=== PATIENT | female | born 1995 | race Caucasian/White ===

== ENCOUNTER 2024-12-23 16:46 | Emergency (ER) | payer BC ==
[2024-12-23] MEDS ORDERED: diphenhydrAMINE 50 MG/ML VIAL ONE (18:13)
[2024-12-23] MEDS ORDERED: Metoclopramide HCl 10 MG (2 mL) VIAL ONE (18:13)
[2024-12-23 18:28] LABS: #Basophils 0.03 10x3/uL (0.0-0.2); #Eosinophils Less than 0.03 10x3/uL (0.0-0.5); #Monocytes 0.53 10x3/uL (0.0-1.1); #Neutrophils 7.63 10x3/uL (1.5-8.4); %Basophils 0.3 % (0.0-2.0); %Eosinophils 0.2 % (0.0-6.0); %Lymphocytes 13.6 % (18.0-47.0); %Monocytes 5.6 % (0.0-10.0); %Neutrophils 80.0 % (40.0-75.0); Hematocrit 39.6 % (34.9-44.5); Hemoglobin 13.3 g/dL (12.0-15.5); Mean Corpuscular Hemoglobin 30.1 pg (27.0-33.0); Mean Corpuscular Volume 89.6 fL (81.6-98.3); Platelet Count 214 10x3/uL (150-450); Red Blood Cell (RBC) Count 4.42 10x6/uL (3.90-5.03); White Blood Cell (WBC) Count 9.54 10x3/uL (3.5-10.5)
[2024-12-23 18:50] LABS: ALT (SGPT) 30 U/L (Less than 34); AST (SGOT) 35 U/L (11-34); Albumin 4.1 g/dL (3.1-4.5); Alkaline Phosphatase 36 U/L (40-110); Anion Gap 14 mmol/L (10-20); BUN (Urea Nitrogen) 8 mg/dL (7.0-18.7); Bilirubin, Total 0.4 mg/dL (0.3-1.2); Calc. Creatinine Clearance 0 mL/min (70-130); Calcium 9.5 mg/dL (7.8-10.44); Carbon Dioxide 20 mmol/L (22-29); Chloride 105 mmol/L (98-107); Globulin 3.6 g/dL (2.4-3.5); Glucose 81 mg/dL (70-105); Lipase 20 U/L (8-78); Magnesium 1.9 mg/dL (1.6-2.6); Potassium 4.0 mmol/L (3.5-5.1); Sodium 135 mmol/L (136-145)
[2024-12-23] MEDS ORDERED: Ondansetron PF 4 MG/2 ML Vial ONE (19:03)
[2024-12-23 19:16] LABS: Glucose, Urine (Dipstick) Normal (Negative); Leukocyte Negative (Negative); Protein, Urine (Dipstick) 30 mg/dl (Neg-Trace); Specific Gravity, Urine 1.025 (1.005-1.030)
[2024-12-23 19:24] LABS: Bacteria/HPF 3+ HPF (None Seen); CAUTI Indications for Culture Pelvic or flank pain; RBC/HPF 0-3 HPF (0-3)
[2024-12-23 19:25] LABS: Mucous/LPF 3+ LPF (<2+)
[2024-12-23 19:26] LABS: Urine Culture Reflex No No
== END 2024-12-23 19:48 | disposition home or self-care (01) ==
LOC: CSHERS 16:46
DX: O21.9 Vomiting of pregnancy, unspecified (principal); Z3A.12 12 weeks gestation of pregnancy
CPT/HCPCS: 80053; 81001; 83690; 83735; 84702; 85025; 96374; 96375; J1200; J2405; J2765